=== PATIENT | female | born 1965 | race Caucasian/White ===

== ENCOUNTER → 2016-11-13 | Outpatient (CLI) | payer OTHER | LOC: FIMAGING 12:31 | DX: M51.36 Other intervertebral disc degeneration, lumbar region (principal); M51.26 Other intervertebral disc displacement, lumbar region ==

== ENCOUNTER 2016-12-20 07:18 | Day surgery (SDC) | payer OTHER ==
[2016-12-20] MEDS ORDERED: LR 1,000 ML IV ONE (07:35)
[2016-12-20] MEDS ORDERED: LIDOCAINE 1% 2 ML INJ ID PRN (07:35)
--- NOTE | 2016-12-20 08:08 | PDANEPAE ---
ANE History of Present Illness Patient presents for EGD and colonoscopy ANE Past Medical History - Cardiovascular History Hx Hypertension: Yes Hx Arrhythmias: No Hx Chest Pain: No Hx Coronary Artery / Peripheral Vascular Disease: No Hx CHF / Valvular Disease: No Hx Palpitations: No Cardiovascular History Comment: PAC'S - Pulmonary History Hx COPD: No Hx Asthma/Reactive Airway Disease: Yes Hx Recent Upper Respiratory Infection: No Hx Oxygen in Use at Home: No Hx Sleep Apnea: Yes Sleep Apnea Screening Result - Last Documented: Positive Pulmonary History Comment: ENVIRONMENTAL TRIGGERS FOR ASTHMA. NOBLE DX APPROX 2009 NO C-PAP IN USE. HX LT LUNG NODULE - Neurologic History Hx Cerebrovascular Accident: No Hx Seizures: No Hx Dementia: No - Endocrine History Hx Diabetes: No - Renal History Hx Renal Disorders: Yes Renal History Comment: DIFFICULTY EMPTING BLADDER SOMETIMES - Liver History Hx Hepatic Disorders: No - Neurological & Psychiatric Hx Hx Neurological and Psychiatric Disorders: Yes Neurological / Psychiatric History Comment: MAJOR DEPRESSIVE DISORDER - Cancer History Hx Cancer: No - Congenital Disorder History Hx Congenital Disorders: No - GI History Hx Gastrointestinal Disorders: Yes Gastrointestinal History Comment: REFLUX. NAUSEA. CONSTIPATION - Other Health History Other Health History: DDD - Chronic Pain History Chronic Pain: Yes (DDD) - Surgical History Prior Surgeries: RT ANKLE ORIF 2014. ARMAND ACL REPAIRS. LT KNEE SCOPE X2 ANE Review of Systems - Exercise capacity Exercise capacity: >=4 METS METS (RN): 4 METS ANE Patient History - Allergies Allergies/Adverse Reactions: shellfish derived Allergy (Verified 12/13/16 10:54) Sulfa (Sulfonamide Antibiotics) Allergy (Verified 12/13/16 10:54) CONTRIDICATED WITH HER LUPUS - Home Medications Home medications: home medication list seen and reviewed Home Medications: Albuterol Sulf IH PRN 10/21/09 [Last Taken 12/17/16] Flovent Hfa DAILY 10/21/09 [Last Taken 12/17/16] Singulair HS 10/21/09 [Last Taken 12/19/16] Gabapentin [Gabapentin 800 mg] 800 mg PO BID 03/11/12 [Last Taken 12/20/16 05:00 ] Hydroxychloroquine Sulfate [Plaquenil] 400 mg PO BID 03/11/12 [Last Taken 05:00] Omeprazole 40 mg PO DAILY06 03/11/12 [Last Taken 12/20/16 05:00] Quetiapine Fumarate 50 mg PO HS 03/11/12 [Last Taken 12/19/16] celeCOXIB [Celebrex (RX)] 200 mg PO HS 03/11/12 [Last Taken 12/19/16] predniSONE [Prednisone] 7.5 mg PO DAILY10 03/11/12 [Last Taken 12/20/16 05:00] Bupropion HCl [Wellbutrin XL 300mg] DAILY06 08/25/12 [Last Taken 12/20/16 05:00 ] DULoxetine DAILY06 12/13/16 [Last Taken 12/20/16 05:00] Estradiol DAILY14 12/13/16 [Last Taken 12/19/16] Herbal Drugs DAILY 12/13/16 [Last Taken 12/12/16] LISINOPRIL/HYDROCHLOROTHIAZIDE HS 12/13/16 [Last Taken 12/19/16] Meclizine HCl PRN 12/13/16 [Last Taken 12/19/16] Ondansetron Odt [Zofran Odt 4 mg (RX)] 4 mg PO Q4 PRN 12/13/16 [Last Taken 12/19] Orphenadrine Citrate BID 12/13/16 [Last Taken 12/20/16 05:00] Oxycontin BID 12/13/16 [Last Taken 12/20/16 05:30] oxyCODONE CR TID 12/13/16 [Last Taken 12/20/16 03:30] - NPO status NPO Since - Liquids (Date): 12/20/16 NPO Since - Liquids (Time): 02:30 NPO Since - Solids (Date): 12/19/16 NPO Since - Solids (Time): 09:30 - Smoking Hx Smoking Status: Never smoked ANE Labs/Vital Signs - Vital Signs Blood Pressure: 104/75 Heart Rate: 84 Respiratory Rate: 16 O2 Sat (%): 92 Height: 167.64 cm Weight: 90.265 kg ANE Physical Exam - Airway Neck exam: FROM Mallampati Score: Class 1 Mouth exam: normal dental/mouth exam - Pulmonary Pulmonary: no respiratory distress - Cardiovascular Cardiovascular: regular rate and rhythym - ASA Status ASA Status: II ANE Anesthesia Plan Anesthesia Plan: GA with mask (RBA discussed)
[2016-12-20] MEDS ORDERED: LIDOCAINE 2% 5 ML SDV ONE (08:17)
[2016-12-20] MEDS ORDERED: PROPOFOL/EMULSION 500 MG/50 ML BOTTLE IV ONE ×2 (08:17→09:22)
--- NOTE | 2016-12-20 08:45 | PDGENHP ---
History & Physical Chief Complaint: Nausea, need for screening colonoscopy History of Present Illness: nausea, need for screening colonoscopy Relevant Physical Exam: GEN: NAD. Cardiac: RRR. Lungs: CTA B. Abd: Soft, nt, nd
[2016-12-20] MEDS ORDERED: NALOXONE HCL 0.4 MG/ML INJ IVP PRN (08:59)
[2016-12-20] MEDS ORDERED: ONDANSETRON 4 MG/2 ML VIAL IVP PRN (08:59)
--- NOTE | 2016-12-20 09:50 | POSTOPPROG ---
Post Op Note Date of Operation: 12/20/16 Surgeon: Tj Watkins Pre-op Diagnosis: nausea/vomiting, screening colonscopy Post-op Diagnosis: same, mild esophagitis, mild gastritis, colon polyp Indication: see above Procedure: EGD w/ biopsy, colonoscopy with biopsy Findings: mild esophagitis, mild gastritis, colon polyp Inf/Abcess present in the surg proc area at time of surgery?: No
--- NOTE | 2016-12-20 10:15 | POSTANESTH ---
Post Anesthetic Evaluation Cardiovascular Status: Normal, Stable Respiratory Status: Normal, Stable Level of Consciousness/Mental Status: Can Participate in Eval Pain Control: Adequate, Prn Tx Ordered Nausea/Vomiting Control: Adequate, Prn Tx Ordered Complications Possibly Related to Anesthesia: None Noted
--- NOTE | 2016-12-20 10:27 | GPN ---
[f rep st] PROCEDURE NOTE PREPROCEDURE DIAGNOSES: 1. Nausea and vomiting. 2. Need for screening colonoscopy. POSTPROCEDURE DIAGNOSES: 1. Mild esophagitis. 2. Mild gastritis. 3. Colon polyps, status post removal. PROCEDURES: Esophagogastroduodenoscopy with biopsy, colonoscopy with biopsies. MEDICATIONS: Monitored anesthesia care. INDICATIONS: The patient is a 51-year-old female with a history of lupus and chronic pain. She als o has nausea and vomiting. She is here for upper endoscopy and a screening colonoscopy. The risks and benefits of the procedure discussed with the patient. Consent obtained. Risks include, but not limited to, bleeding, perforation, risks related to sedation. The patient is ASA class 3. DESCRIPTION OF PROCEDURE: The end-viewing endoscope was inserted into the esophagus, into stomach a nd second portion of the duodenum. The esophagus shows mild esophagitis at the GE junction. The GE junction is located at 39 cm from the incisors. The stomach shows mild gastritis in the gastric an trum. There is minimal residual food in the stomach. There is no hiatal hernia on retroflexion. T he duodenum and second portion is normal. Biopsies were taken of the stomach and duodenum using col d biopsy forceps to evaluate for Helicobacter pylori and celiac disease. The patient was then repos itioned, and the adult colonoscope was advanced into the terminal ileum. The terminal ilium appears normal. The IC valve, appendiceal orifice, cecum are normal. In the ascending colon, there is a s mall 2 mm polyp seen. Adjacent to the polyp, there is a colon fold that showed very mild oozing of blood that extended approximately 2 cm. This may be related to a superficial mucosal disruption rel ated to the scope insertion. Therefore, the polyp was removed using cold biopsy forceps, and the li near fold was treated with a total of 7 hemoclips to close any possible defect in the mucosa. Again , no deeper tissue disruption was noted. The clip placement was precautionary. IMPRESSION: 1. Mild esophagitis. 2. Mild gastritis. 3. Small colon polyp in ascending colon, removed using cold biopsy forceps. 4. Possible 2 cm linear superficial mucosal disruption, possibility related to scope insertion, pro phylactically treated with hemoclips. There was no bleeding at the end of the procedure. RECOMMENDATIONS: 1. Advance diet as tolerated. 2. Discharge patient to home. 3. Follow up the final biopsy results. If the colon polyp is found to be adenomatous, repeat colon oscopy in 5 years is recommended. Otherwise, repeat colonoscopy in 10 years is recommended. Follow up in GI clinic as previously scheduled. 4. Thank you for allowing me to participate in the care of your patient. Please do hesitate to tami hernandez with questions. /[id number]/MODL
[2016-12-20 11:08] VITALS: BP 113/90; PULSE 66; RESP 12; TEMP 98.4; O2SAT 96
== END 2016-12-20 11:29 | disposition home or self-care (01) ==
LOC: FSGY 07:18
PROVIDERS: ATTEND Internal Medicine Gastroenterology
PROC: 0DB98ZX Excision of Duodenum, Via Natural or Artificial Opening Endoscopic, Diagnostic (ICD-10-PCS; principal; 2016-12-20 08:30)
PROC: 0DBK8ZX Excision of Ascending Colon, Via Natural or Artificial Opening Endoscopic, Diagnostic (ICD-10-PCS; principal; 2016-12-20 08:30)
PROC: 0DB68ZX Excision of Stomach, Via Natural or Artificial Opening Endoscopic, Diagnostic (ICD-10-PCS; principal; 2016-12-20 08:30)
DX: Z12.11 Encounter for screening for malignant neoplasm of colon (principal); K29.70 Gastritis, unspecified, without bleeding; K20.9 Esophagitis, unspecified; D12.2 Benign neoplasm of ascending colon; G89.4 Chronic pain syndrome; R11.2 Nausea with vomiting, unspecified; M51.36 Other intervertebral disc degeneration, lumbar region; F45.42 Pain disorder with related psychological factors; M54.6 Pain in thoracic spine; G47.00 Insomnia, unspecified
CPT/HCPCS: J2704

== ENCOUNTER → 2017-10-27 | Outpatient (CLI) | payer OTHER | LOC: FIMAGING 09:39 | PROVIDERS: ATTEND Family Medicine | DX: Z12.31 Encounter for screening mammogram for malignant neoplasm of breast (principal) ==